=== PATIENT | female | born 1930 | race Caucasian/White ===

== ENCOUNTER 2016-07-24 09:43 | Observation (INO) | payer MEDICARE ==
[2016-07-24] VITALS (7 sets, daily range): BP systolic 125–183; BP diastolic 54–84
[~2016-07-24] VITALS: Ht 160 cm; Wt 65.3 kg
[~2016-07-24 09:43] MED LIST: ARICEPT 5MG TAB5 MG PO; CELEBREX100 MG PO; CELEXA10 MG PO; DONEPEZIL 5MG TA5 MG PO; DONEPEZIL HCL10 MG PO; DULOXETINE30 M1 PO; KLOR-CON M2020 ME1 PO; MEMANTINE HCL10 MG PO; OXAZEPAM 10MG C10 M1 PO; PREDNISONE 20MG20 MG PO; RISPERDAL 0.50.5 MG PO; TRAZODONE HCL50 MG PO
[2016-07-24] MEDS ORDERED: ASPIRIN EC325 MG PO (10:02)
[2016-07-24] MEDS ORDERED: LEADER NATUR1000 MCG PO (10:03)
--- NOTE | 2016-07-24 10:03 | Emergency Room Report ---
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 PT HAS A VISIBLE CONTUSION OVER RIGHT EYE. HOLDING HER RIGHT ARM, GAURDING IT. EMS REPORTS IT LOOKS "DISLOCATED". 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 N Clinical Suspician of Infection? N Mental Status: 2 - Mildly Altered Sepsis Risk:Low Sepsis Risk Have you (or family members/close friends) recently traveled outside the [place]? N If Yes, where/when: Have you had exposure to infectious disease within the past month? N TB? Other? Specify: Source patient, RN notes reviewed Exam Limitations no limitations Comment Pt reports she fell at the CT this morning and hit her head ...she says she did not pass out. Complains of pain in the right forehead where she has a large hematoma over the right eye with abrasions and also in her right shoulder and hurts to try to move it Cardiac Chest Pain Chest pain indicative of cardiac No Timing/Duration this morning Severity moderate ALLERGIES Coded Allergies: No Known Allergies (04/20/15) Home Medications Reported Medications ASPIRIN (Aspirin 325MG) 325 MG PO DAILY Vitamin B12 (Cyanocobalamin Injection) 1,000 MCG PO DAILY DULOXETINE HCL (Cymbalta 30MG) 30 MG PO DAILY DONEPEZIL HCL (Donepezil 10MG Tablet) 10 MG PO QHS Hydroxyzine Hcl (Hydroxyzine) 50 MG PO QHS Potassium Chloride (Klor-Con M20) 20 MEQ PO Q48H MEMANTINE HCL (Namenda 10MG) 10 MG PO BID Olanzapine 5 MG PO QHS Acetaminophen (Tylenol) 650 MG PO Q4HP PRN PAIN/FEVER History Medical History General CAD? No Angina: Yes [place]: No Hypertension? No Hyperlipidemia? No CHF? No DVT? No PE? No COPD? No Asthma? No Anemia? No GERD? Yes Gastric ulcers? No GI Bleed? No Hernia? Yes Thyroid Problems? No Hypothyroidism? No CVA? No Seizures? No Diabetes? No Renal Insuffiency? No End Stage Renal Disease? No UTI? No Stones? No BPH? No GB Disease: No Nephritic Syndrome? No Asplenia? No Hepatitis? No Sickle Cell Disease? No Arthritis? No Migraines? No Cataracts? Yes Glaucoma? No MRSA? No HIV? No TB? No Anxiety? No Depression? Yes Cancer? No Site: N More? 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 Musculoskeletal see HPI Physical Exam Vital Signs Vital Signs Date Time Temp Pulse Resp B/P Pulse O2 O2 Flow FiO2 Ox Delivery Rate 07/24 1235 63 16 137/63 100 2 07/24 1200 81 16 154/65 100 2 07/24 1148 16 07/24 1145 98.1 68 16 172/88 100 2 07/24 1135 67 16 212/84 100 2 07/24 1125 70 16 197/84 100 2 07/24 1117 68 16 206/84 100 2 07/24 1115 70 16 197/84 100 2 07/24 1105 72 16 181/73 99 2 07/24 1055 69 16 179/74 96 2 07/24 1045 72 16 173/82 96 2 07/24 1037 79 16 171/79 97 2 07/24 0946 97.6 76 16 183/84 92 General Appearance normal appearance, WD/WN, mild distress Eye Exam - right eye other (large hematoma above r eye), bilateral eye normal exam Ear, Nose, Throat hearing grossly normal, normal pharynx Respiratory Status No: respiratory distress. Lung Sounds bilateral: normal breath sounds. 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 Yes Escobar was queried for this patient? Yes Reference #: [id number] Risks/benefits of using a controlled substance for treatment were not discussed w/pt Results/Orders Laboratory Tests 07/24/16 1250: Lactic Acid Pending 07/24/16 1115: Urine Color YELLOW, Urine Appearance CLOUDY, Urine pH 7.0, Ur Specific [place] 1.015, Urine Protein NEGATIVE, Urine Ketones NEGATIVE, Urine Blood TRACE-INTACT, Urine Nitrate POSITIVE H, Urine Bilirubin NEGATIVE, Urine Urobilinogen 1.0, Ur Leukocyte Esterase TRACE H, Urine RBC OCC, Urine WBC OCC, Ur Squamous Epith Cells 3-5, Urine Bacteria 4+, Urine Glucose NEGATIVE 07/24/16 1000: Sodium 141, Potassium 3.5, Chloride 108 H, Carbon Dioxide 26, BUN 16, Creatinine 1.0, Estimated Creat Clear 34 L, Estimated GFR (MDRD) 52 L, Glucose 111 H, Calcium 8.5, Total Bilirubin 0.4, AST 15, ALT 20, Alkaline Phosphatase 76, Total Protein 7.0, Albumin 3.2 L, Globulin 3.8 H, Albumin/Globulin Ratio 0.8 L, WBC 9.0, RBC 4.21, Hgb 12.5, Hct 38.4, MCV 91.2, RDW 14.6, Plt Count 313 , MPV 6.1 L, Gran % 43.2, Gran # 3.9, Lymphocytes % 46.7, Monocytes % 6.3, Eosinophils % 3.1, Basophils % 0.7, Lymphocytes # 4.2, Monocytes # 0.6, Eosinophils # 0.3, Basophils # 0.1, PUBS MCHC 32.6, MCH 29.7 Current Medication Orders Sig/Rhiannon Start time Last Medication Dose Route Stop Time Status Admin Ceftriaxone Sodium 1 GM ONCE ONE 07/24 1200 DC 07/24 Sodium Chloride 50 ML IV 07/24 1229 1254 Hydralazine HCl 20 MG ONCE ONE 07/24 1145 DC 07/24 IV 07/24 1146 1147 Morphine Sulfate 4 MG ONCE ONE 07/24 1145 DC 07/24 IV 07/24 1146 1148 Ondansetron HCl 4 MG ONCE ONE 07/24 1145 DC 07/24 IV 07/24 1146 1148 Morphine Sulfate 0 .STK-MED ONE 07/24 1140 DC .ROUTE Ondansetron HCl 0 .STK-MED ONE 07/24 1140 DC .ROUTE Hydralazine HCl 0 .STK-MED ONE 07/24 1139 DC .ROUTE Etomidate 16 MG ONCE ONE 07/24 1100 DC 07/24 IV 07/24 1101 1114 Miscellaneous 0 .STK-MED ONE 07/24 1057 DC XX Sodium Chloride 1,000 ML .STK-MED ONE 07/24 1056 DC IV Diphtheria/Pertussis/ 0.5 ML ONCE ONE 07/24 1015 DC Tetanus Vacc IM 07/24 1016 Sodium Chloride 10 ML PRN PRN 07/24 1015 AC IV 07/25 1009 Orders Procedure Date/time Status DIET-NOTHING BY MOUTH 07/24 L Active Decision to admit 07/24 1241 Active ANKLE-RT-2 VIEWS 07/24 1213 Active CULTURE, BLOOD 07/24 1143 Active LACTIC ACID 07/24 1143 Active CBC WITH AUTO DIFF 07/24 1143 Complete CHEM 12 PROFILE 07/24 1143 Complete URINALYSIS/COMPLETE 07/24 1120 Complete [id number] VIEW COMP.-RT 07/24 1115 Active KNEE-3 VIEWS-LT 07/24 1115 Active CHEST-AP VIEW ONLY 07/24 1115 Active CULTURE, URINE 07/24 1115 Active IV SALINE LOCK 07/[address] HEAD REQ 07/[address] SCAN REQ 07/24 1004 Complete XRAY/CT/US XRAY/CT/US XRAY chest, knee, shoulder XR interpretation by reviewed by me Xray Results anterior dislocation right shoulder CT head, C-spine CT interpretation by discussed w/radiologist Time results known: 1156 CT Results normal/NAD, no fracture seen Comment Large hematoma right forehead Procedures Orthopedic/Inj/Splint IV Sedation Airway Assessment IV Sedation used? Yes (Etomidate 16 mg ) Neck Extension: Limited Dentition: Intact Modified Mallampati Class: MP Class I ASA prior to sedation per Dr: 1 Comment: Conscious Sedation obtained without difficulty Ortho Proc/Injections/Splints Risks/benefits discussed with pt/guardian? Yes IV conscious sedation Yes Procedural sedation Etomidate 16mg given IVP Arthrocentesis of (site) Not applicable Reduction of dislocate shoulder Injection of anesthetic in joint (site) not needed Reduction of dislocation Location shoulder Reductioni Method Traction/Counter traction. Comment Reduced without difficulty...send for post reduction films Post reduction xrays completed and anatomic Yes Pre-Made Type sling/swathe Pre-Proc Neuro Vasc Exam normal Post-Proc Neuro Vasc Exam normal Departure Departure Time of Disposition 1309 Disposition Still a Patient Clinical Impression Primary Impression: Closed head injury Qualifiers: Encounter type: initial encounter Qualified Code: S09.90XA - Unspecified injury of head, initial encounter Secondary Impressions: Closed anterior dislocation of right shoulder Qualifiers: Encounter type: initial encounter Qualified Code: S43.014A - Anterior dislocation of right humerus, initial encounter Cystitis without hematuria Condition STABLE Referrals Finn Jones (Family) Additional Instructions Discussed with Dr. Galdamez...OBS to Dr. Marie Discharge Counseling Counseled pt/family regarding diagnosis, test results, follow up needs ED Critical Care Critical Care No If Critical Care minutes are documented, the time involved in the performance of seperately reportable procedures was not counted toward critical care time documented. I directly delivered medical care to this critically ill and/or injured patient. Timely evaluation and treatment was necessary to address the significant organ system(s) dysfunction present in this patient. at 1312
--- NOTE | 2016-07-24 10:03 | Emergency Room Report ---
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 PT HAS A VISIBLE CONTUSION OVER RIGHT EYE. HOLDING HER RIGHT ARM, GAURDING IT. EMS REPORTS IT LOOKS "DISLOCATED". 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 N Clinical Suspician of Infection? N Mental Status: 2 - Mildly Altered Sepsis Risk:Low Sepsis Risk Have you (or family members/close friends) recently traveled outside the [place]? N If Yes, where/when: Have you had exposure to infectious disease within the past month? N TB? Other? Specify: Source patient, RN notes reviewed Exam Limitations no limitations Comment Pt reports [facility] this [facility] and hit her head ...she says she did not pass out. Complains of pain in the right forehead where she has a large hematoma over the right eye with abrasions and also in her right shoulder and hurts to try to move it Cardiac Chest Pain Chest pain indicative of cardiac No Timing/Duration this morning Severity moderate ALLERGIES Coded Allergies: No Known Allergies (04/20/15) Home Medications Reported Medications ASPIRIN (Aspirin 325MG) 325 MG PO DAILY Vitamin B12 (Cyanocobalamin Injection) 1,000 MCG PO DAILY DULOXETINE HCL (Cymbalta 30MG) 30 MG PO DAILY DONEPEZIL HCL (Donepezil 10MG Tablet) 10 MG PO QHS Hydroxyzine Hcl (Hydroxyzine) 50 MG PO QHS Potassium Chloride (Klor-Con M20) 20 MEQ PO Q48H MEMANTINE HCL (Namenda 10MG) 10 MG PO BID Olanzapine 5 MG PO QHS Acetaminophen (Tylenol) 650 MG PO Q4HP PRN PAIN/FEVER History Medical History General CAD? No Angina: Yes [place]: No Hypertension? No Hyperlipidemia? No CHF? No DVT? No PE? No COPD? No Asthma? No Anemia? No GERD? Yes Gastric ulcers? No GI Bleed? No Hernia? Yes Thyroid Problems? No Hypothyroidism? No CVA? No Seizures? No Diabetes? No Renal Insuffiency? No End Stage Renal Disease? No UTI? No Stones? No BPH? No GB Disease: No Nephritic Syndrome? No Asplenia? No Hepatitis? No Sickle Cell Disease? No Arthritis? No Migraines? No Cataracts? Yes Glaucoma? No MRSA? No HIV? No TB? No Anxiety? No Depression? Yes Cancer? No Site: N More? 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 Musculoskeletal see HPI Physical Exam Vital Signs Vital Signs Date Time Temp Pulse Resp B/P Pulse O2 O2 Flow FiO2 Ox Delivery Rate 07/24 1235 63 16 137/63 100 2 07/24 1200 81 16 154/65 100 2 07/24 1148 16 07/24 1145 98.1 68 16 172/88 100 2 07/24 1135 67 16 212/84 100 2 07/24 1125 70 16 197/84 100 2 07/24 1117 68 16 206/84 100 2 07/24 1115 70 16 197/84 100 2 07/24 1105 72 16 181/73 99 2 07/24 1055 69 16 179/74 96 2 07/24 1045 72 16 173/82 96 2 07/24 1037 79 16 171/79 97 2 07/24 0946 97.6 76 16 183/84 92 General Appearance normal appearance, WD/WN, mild distress Eye Exam - right eye other (large hematoma above r eye), bilateral eye normal exam Ear, Nose, Throat hearing grossly normal, normal pharynx Respiratory Status No: respiratory distress. Lung Sounds bilateral: normal breath sounds. 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 Yes Escobar was queried for this patient? Yes Reference #: [id number] Risks/benefits of using a controlled substance for treatment were not discussed w/pt Results/Orders Laboratory Tests 07/24/16 1250: Lactic Acid Pending 07/24/16 1115: Urine Color YELLOW, Urine Appearance CLOUDY, Urine pH 7.0, Ur Specific [place] 1.015, Urine Protein NEGATIVE, Urine Ketones NEGATIVE, Urine Blood TRACE-INTACT, Urine Nitrate POSITIVE H, Urine Bilirubin NEGATIVE, Urine Urobilinogen 1.0, Ur Leukocyte Esterase TRACE H, Urine RBC OCC, Urine WBC OCC, Ur Squamous Epith Cells 3-5, Urine Bacteria 4+, Urine Glucose NEGATIVE 07/24/16 1000: Sodium 141, Potassium 3.5, Chloride 108 H, Carbon Dioxide 26, BUN 16, Creatinine 1.0, Estimated Creat Clear 34 L, Estimated GFR (MDRD) 52 L, Glucose 111 H, Calcium 8.5, Total Bilirubin 0.4, AST 15, ALT 20, Alkaline Phosphatase 76, Total Protein 7.0, Albumin 3.2 L, Globulin 3.8 H, Albumin/Globulin Ratio 0.8 L, WBC 9.0, RBC 4.21, Hgb 12.5, Hct 38.4, MCV 91.2, RDW 14.6, Plt Count 313 , MPV 6.1 L, Gran % 43.2, Gran # 3.9, Lymphocytes % 46.7, Monocytes % 6.3, Eosinophils % 3.1, Basophils % 0.7, Lymphocytes # 4.2, Monocytes # 0.6, Eosinophils # 0.3, Basophils # 0.1, PUBS MCHC 32.6, MCH 29.7 Current Medication Orders Sig/Rhiannon Start time Last Medication Dose Route Stop Time Status Admin Ceftriaxone Sodium 1 GM ONCE ONE 07/24 1200 DC 07/24 Sodium Chloride 50 ML IV 07/24 1229 1254 Hydralazine HCl 20 MG ONCE ONE 07/24 1145 DC 07/24 IV 07/24 1146 1147 Morphine Sulfate 4 MG ONCE ONE 07/24 1145 DC 07/24 IV 07/24 1146 1148 Ondansetron HCl 4 MG ONCE ONE 07/24 1145 DC 07/24 IV 07/24 1146 1148 Morphine Sulfate 0 .STK-MED ONE 07/24 1140 DC .ROUTE Ondansetron HCl 0 .STK-MED ONE 07/24 1140 DC .ROUTE Hydralazine HCl 0 .STK-MED ONE 07/24 1139 DC .ROUTE Etomidate 16 MG ONCE ONE 07/24 1100 DC 07/24 IV 07/24 1101 1114 Miscellaneous 0 .STK-MED ONE 07/24 1057 DC XX Sodium Chloride 1,000 ML .STK-MED ONE 07/24 1056 DC IV Diphtheria/Pertussis/ 0.5 ML ONCE ONE 07/24 1015 DC Tetanus Vacc IM 07/24 1016 Sodium Chloride 10 ML PRN PRN 07/24 1015 AC IV 07/25 1009 Orders Procedure Date/time Status DIET-NOTHING BY MOUTH 07/24 L Active Decision to admit 07/24 1241 Active ANKLE-RT-2 VIEWS 07/24 1213 Active CULTURE, BLOOD 07/24 1143 Active LACTIC ACID 07/24 1143 Active CBC WITH AUTO DIFF 07/24 1143 Complete CHEM 12 PROFILE 07/24 1143 Complete URINALYSIS/COMPLETE 07/24 1120 Complete [id number] VIEW COMP.-RT 07/24 1115 Active KNEE-3 VIEWS-LT 07/24 1115 Active CHEST-AP VIEW ONLY 07/24 1115 Active CULTURE, URINE 07/24 1115 Active IV SALINE LOCK 07/[address] HEAD REQ 07/[address] SCAN REQ 07/24 1004 Complete XRAY/CT/US XRAY/CT/US XRAY chest, knee, shoulder XR interpretation by reviewed by me Xray Results anterior dislocation right shoulder CT head, C-spine CT interpretation by discussed w/radiologist Time results known: 1156 CT Results normal/NAD, no fracture seen Comment Large hematoma right forehead Procedures Orthopedic/Inj/Splint IV Sedation Airway Assessment IV Sedation used? Yes (Etomidate 16 mg ) Neck Extension: Limited Dentition: Intact Modified Mallampati Class: MP Class I ASA prior to sedation per Dr: 1 Comment: Conscious Sedation obtained without difficulty Ortho Proc/Injections/Splints Risks/benefits discussed with pt/guardian? Yes IV conscious sedation Yes Procedural sedation Etomidate 16mg given IVP Arthrocentesis of (site) Not applicable Reduction of dislocate shoulder Injection of anesthetic in joint (site) not needed Reduction of dislocation Location shoulder Reductioni Method Traction/Counter traction. Comment Reduced without difficulty...send for post reduction films Post reduction xrays completed and anatomic Yes Pre-Made Type sling/swathe Pre-Proc Neuro Vasc Exam normal Post-Proc Neuro Vasc Exam normal Departure Departure Time of Disposition 1309 Disposition Still a Patient Clinical Impression Primary Impression: Closed head injury Qualifiers: Encounter type: initial encounter Qualified Code: S09.90XA - Unspecified injury of head, initial encounter Secondary Impressions: Closed anterior dislocation of right shoulder Qualifiers: Encounter type: initial encounter Qualified Code: S43.014A - Anterior dislocation of right humerus, initial encounter Cystitis without hematuria Condition STABLE Referrals Finn Jones (Family) Additional Instructions Discussed with Dr. Galdamez...OBS to Dr. Marie Discharge Counseling Counseled pt/family regarding diagnosis, test results, follow up needs ED Critical Care Critical Care No If Critical Care minutes are documented, the time involved in the performance of seperately reportable procedures was not counted toward critical care time documented. I directly delivered medical care to this critically ill and/or injured patient. Timely evaluation and treatment was necessary to address the significant organ system(s) dysfunction present in this patient. at 1312
[2016-07-24] MEDS ORDERED: CYMBALTA30 MG PO (10:04)
[2016-07-24] MEDS ORDERED: HYDROXYZINE50 MG PO (10:04)
[2016-07-24] MEDS ORDERED: DONEPEZIL 10MG10 MG PO (10:04)
[2016-07-24] MEDS ORDERED: KLOR-CON M2020 MEQ PO (10:05)
[2016-07-24] MEDS ORDERED: OLANZAPINE5 M1 PO (10:06)
[2016-07-24] MEDS ORDERED: NAMENDA10 MG PO (10:06)
[2016-07-24] MEDS ORDERED: TYLENOL325 MG PO (10:07)
--- NOTE | 2016-07-24 11:16 | RADIOLOGY REPORT PS360 ---
CT CERVICAL SPINE W/O CONT INDICATION: Neck pain following injury FALL WITH HEAD INJURY ORDERING PHYSICIAN: Divya Martinez MD PATIENT AGE: 86 years COMPARISON: None TECHNIQUE: Axial images are obtained without contrast. Sagittal and coronal reformatted images are reviewed as well. FINDINGS: Normal alignment. No fracture or dislocation. No lytic or blastic change. Mild degenerative disc disease is present at C4-C5. No prevertebral soft tissue swelling. Upper thoracic images show dilatation and ectasia of the right and [place] artery causing compression upon the anterior aspect of the trachea with mild narrowing of the trachea at the thoracic inlet.. There is a common origin of the right and on the mid and left carotid artery. This is the area of dilatation which measures 2.5 x 2.3 cm. Gas is present within the left jugular vein at the level of the mandibular angle and could be due to recent intravenous ministration. IMPRESSION: 1. No acute fracture. 2. Mild degenerative change. 3. 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
--- NOTE | 2016-07-24 11:20 | RADIOLOGY REPORT PS360 ---
CT HEAD W/O CONTRAST HISTORY: Head pain, hematoma, head injury with headache, massive hematoma above the right eye FALL WITH HEAD INJURY ORDERING PHYSICIAN: Divya Martinez MD PATIENT AGE: 86 years COMPARISON: None TECHNIQUE: Axial images obtained without contrast. Brain and bone windows reviewed. FINDINGS: No midline shift, mass effect, intracranial hemorrhage, hydrocephalus, or extra-axial fluid collection is evident. There are involutional changes of age with periventricular ischemic gliotic changes. There is a large hematoma in the right frontal area and supraorbital region. No intracranial hemorrhage evident. No evidence of subdural or epidural hematoma. No calvarial fracture or sinus air-fluid level. The calvarium has an unremarkable appearance. No mastoid effusion. The visualized paranasal sinuses are unremarkable. IMPRESSION: 1. No acute intracranial pathology. 2. Large right supraorbital hematoma.
--- NOTE | 2016-07-24 11:21 | RADIOLOGY REPORT PS360 ---
[id number] VIEWS HISTORY: Pain following injury injury ORDERING PHYSICIAN: Divya Martinez MD PATIENT AGE: 86 years COMPARISON: None FINDINGS: Anterior shoulder dislocation is present. No obvious fracture is evident. Mild osteoarthritic change acromioclavicular joint. IMPRESSION: Right anterior shoulder dislocation
[2016-07-24 11:33] LABS: URINE BILIRUBIN - DIPSTICK NEGATIVE (NEG); URINE BLOOD TRACE-INTACT (NEG)
[2016-07-24 12:02] LABS: HEMOGLOBIN 12.5 g/dL (12.2-16.2); LYMPH # 4.2 K/mm3 (0.7-4.5); LYMPH % 46.7 % (10-50.0)
--- NOTE | 2016-07-24 16:03 | HISTORY AND PHYSICAL REPORT ---
History and Physical (FCA) Date of admission: 07/24/16 Chief complaint: Fall at assisted History: History of Present Illness: Ms. Byrd is an 86-year-old white female with Alzheimer's dementia and coronary artery disease who is a resident of [facility] [place]. He suffered a fall at the assisted this morning. It is not clear if she had a syncopal episode or simply fell although she told the ER physician she did not pass out. On evaluation in the emergency room, she was noted to have a large contusion of the right forehead and eye as well as an anterior dislocation of the left shoulder. CT scan of the head showed no intracranial bleed. X-rays of the C- spine and shoulder showed no fracture. Laboratory data was satisfactory except for an abnormal urinalysis. Under sedation, the ER physician was able to reduce left shoulder dislocation. Because of her closed head trauma and urinary tract infection, it was felt prudent to admit her for observation. On my exam she is awake and appears fairly comfortable. She answers questions appropriately. Past Medical History: Medical History: CAD? No Angina: Yes DC: No Hypertension? No Hyperlipidemia? No CHF? No DVT? No PE? No COPD? No Asthma? No Anemia? No GERD? Yes Gastric ulcers? No GI Bleed? No Hernia? Yes Thyroid Problems? No Hypothyroidism? No CVA? No Seizures? No Diabetes? No Renal Insuffiency? No UTI? No Stones? No BPH? No GB Disease: No Nephritic Syndrome? No Asplenia? No Hepatitis? No Sickle Cell Disease? No Arthritis? No Migraines? No Cataracts? Yes Glaucoma? No MRSA? No HIV? No TB? No Anxiety? No Depression? Yes Cancer? No Site: N More? No Additional hx: Diverticulosis Alzheimers Dementia Surgical history: Previous Surgery?Y PARAESOPHAGEL SURGERY ESOPHAGEAL HERNIA REPAIR PARTIAL HYSTERECTOMY Appendix CATARACT BILAT Medications: Reported Medications ASPIRIN (Aspirin EC) 325 MG PO DAILY CYANOCOBALAMIN (VITAMIN B-12) (Vitamin B-12) 1,000 MCG PO DAILY Hydroxyzine Hcl (Hydroxyzine) 50 MG PO QHS DULOXETINE HCL (Cymbalta 30MG) 30 MG PO DAILY DONEPEZIL HCL (Donepezil 10MG Tablet) 10 MG PO QHS Potassium Chloride (Klor-Con M20) 20 MEQ PO Q48H MEMANTINE HCL (Namenda 10MG) 10 MG PO BID Olanzapine 5 MG PO QHS Acetaminophen (Tylenol) 650 MG PO Q4HP PRN PAIN/FEVER Allergies: Coded Allergies: No Known Allergies (04/20/15) Family History: Family history: Postive for: CAD. Negative for: DM. Social History: Smoking Hx Tobacco: No Smoker: Never Smoker Type: N/A Packs/day: N/A Are you exposed to second hand No Alcohol: Alcohol: No Hx of Drug Use: Drug Use? No Patien't marital status is: Review of Systems: Patient unresponsive? No (but a poor historian) ENT No: ear ache, nose bleed, hearing loss. Cardiovascular No: chest pain, palpitations. Respiratory No: shortness of air. GI No: abdominal pain. (female) No: flank pain. Skin Positive for: abrasions, bruising, contusions. Neurological Positive for: confusion. Immune/allergy No: hives. Eyes Positive for: blurry vision. No: diploplia, vision loss. Musculoskeletal Positive for: joint pain. Psychiatric Positive for: confused. Physical Exam: Vital signs: 1ST Vital Signs Result Date Time Pulse Ox 92 07/24 0946 B/P 183/84 07/24 0946 Temp 97.6 07/24 0946 Pulse 76 07/24 0946 Resp 16 07/24 0946 O2 Flow Rate 2 07/24 1037 O2 Delivery OXYGEN 07/24 1253 Exam: General appearance: awake, no acute distress, calm demeanor Eyes: large hematoma of right forehead and around. She is able to partially open right. Globe appears intact ENT: mucous membranes moist, nose normal, pharynx normal Neck: supple, slight tenderness of right posterior neck Cardiovascular: regular rate & rhythm, no murmur Respiratory: clear to auscultation, chest non-tender, good air movement ABD: non-distended, soft, no tenderness Extremities: no peripheral edema, warm Musculoskeletal: left arm in sling Skin: dry, normal color, warm, several small abrsions on right forehead Neuro: alert, speech clear, oriented to name only Lab data: Labs: Laboratory Tests 07/24/16 1250: Lactic Acid 1.8 07/24/16 1115: Urine Color YELLOW, Urine Appearance CLOUDY, Urine pH 7.0, Ur Specific [place] 1.015, Urine Protein NEGATIVE, Urine Ketones NEGATIVE, Urine Blood TRACE-INTACT, Urine Nitrate POSITIVE H, Urine Bilirubin NEGATIVE, Urine Urobilinogen 1.0, Ur Leukocyte Esterase TRACE H, Urine RBC OCC, Urine WBC OCC, Ur Squamous Epith Cells 3-5, Urine Bacteria 4+, Urine Glucose NEGATIVE 07/24/16 1000: Sodium 141, Potassium 3.5, Chloride 108 H, Carbon Dioxide 26, BUN 16, Creatinine 1.0, Estimated Creat Clear 34 L, Estimated GFR (MDRD) 52 L, Glucose 111 H, Calcium 8.5, Total Bilirubin 0.4, AST 15, ALT 20, Alkaline Phosphatase 76, Total Protein 7.0, Albumin 3.2 L, Globulin 3.8 H, Albumin/Globulin Ratio 0.8 L, WBC 9.0, RBC 4.21, Hgb 12.5, Hct 38.4, MCV 91.2, RDW 14.6, Plt Count 313 , MPV 6.1 L, Gran % 43.2, Gran # 3.9, Lymphocytes % 46.7, Monocytes % 6.3, Eosinophils % 3.1, Basophils % 0.7, Lymphocytes # 4.2, Monocytes # 0.6, Eosinophils # 0.3, Basophils # 0.1, PUBS MCHC 32.6, MCH 29.7 Microbiology 07/24 1250 BLOOD: Anaerobic Blood Culture - RECD 07/24 1250 BLOOD: Aerobic Blood Culture - RECD 07/24 1250 BLOOD: Anaerobic Blood Culture - RECD 07/24 1250 BLOOD: Aerobic Blood Culture - RECD 07/24 1115 URINE CC: Urine Culture - RECD Diagnosis(es): 1. Closed head injury 2. Cystitis without hematuria 3. Closed anterior dislocation of right shoulder 4. Alzheimer's dementia Status: Chronic 5. Fall 6. History of ASCVD (arteriosclerotic cardiovascular disease) 7. GERD (gastroesophageal reflux disease) Plan: She is admitted for observation after her fall with closed head injury. She has an apparent urinary tract infection and has been started on IV Rocephin pending results of cultures. Her left shoulder dislocation was reduced in the emergency room and her arm is in a sling. She will be placed on a auto transmission technician to rule out dysrhythmias. She will be continued on her maintenance medications from the assisted. Additional workup and treatment will be as indicated by her hospital course. at 0000
--- NOTE | 2016-07-24 16:03 | HISTORY AND PHYSICAL REPORT ---
History and Physical (FCA) Date of admission: 07/24/16 Chief complaint: Fall at group home History: History of Present Illness: Ms. Byrd is an 86-year-old white female with Alzheimer's dementia and coronary artery disease who is a resident of [facility] [place]. He suffered a fall at the group home this morning. It is not clear if she had a syncopal episode or simply fell although she told the ER physician she did not pass out. On evaluation in the emergency room, she was noted to have a large contusion of the right forehead and eye as well as an anterior dislocation of the left shoulder. CT scan of the head showed no intracranial bleed. X-rays of the C- spine and shoulder showed no fracture. Laboratory data was satisfactory except for an abnormal urinalysis. Under sedation, the ER physician was able to reduce left shoulder dislocation. Because of her closed head trauma and urinary tract infection, it was felt prudent to admit her for observation. On my exam she is awake and appears fairly comfortable. She answers questions appropriately. Past Medical History: Medical History: CAD? No Angina: Yes MT: No Hypertension? No Hyperlipidemia? No CHF? No DVT? No PE? No COPD? No Asthma? No Anemia? No GERD? Yes Gastric ulcers? No GI Bleed? No Hernia? Yes Thyroid Problems? No Hypothyroidism? No CVA? No Seizures? No Diabetes? No Renal Insuffiency? No UTI? No Stones? No BPH? No GB Disease: No Nephritic Syndrome? No Asplenia? No Hepatitis? No Sickle Cell Disease? No Arthritis? No Migraines? No Cataracts? Yes Glaucoma? No MRSA? No HIV? No TB? No Anxiety? No Depression? Yes Cancer? No Site: N More? No Additional hx: Diverticulosis Alzheimers Dementia Surgical history: Previous Surgery?Y PARAESOPHAGEL SURGERY ESOPHAGEAL HERNIA REPAIR PARTIAL HYSTERECTOMY Appendix CATARACT BILAT Medications: Reported Medications ASPIRIN (Aspirin EC) 325 MG PO DAILY CYANOCOBALAMIN (VITAMIN B-12) (Vitamin B-12) 1,000 MCG PO DAILY Hydroxyzine Hcl (Hydroxyzine) 50 MG PO QHS DULOXETINE HCL (Cymbalta 30MG) 30 MG PO DAILY DONEPEZIL HCL (Donepezil 10MG Tablet) 10 MG PO QHS Potassium Chloride (Klor-Con M20) 20 MEQ PO Q48H MEMANTINE HCL (Namenda 10MG) 10 MG PO BID Olanzapine 5 MG PO QHS Acetaminophen (Tylenol) 650 MG PO Q4HP PRN PAIN/FEVER Allergies: Coded Allergies: No Known Allergies (04/20/15) Family History: Family history: Postive for: CAD. Negative for: DM. Social History: Smoking Hx Tobacco: No Smoker: Never Smoker Type: N/A Packs/day: N/A Are you exposed to second hand No Alcohol: Alcohol: No Hx of Drug Use: Drug Use? No Patien't marital status is: Review of Systems: Patient unresponsive? No (but a poor historian) ENT No: ear ache, nose bleed, hearing loss. Cardiovascular No: chest pain, palpitations. Respiratory No: shortness of air. GI No: abdominal pain. (female) No: flank pain. Skin Positive for: abrasions, bruising, contusions. Neurological Positive for: confusion. Immune/allergy No: hives. Eyes Positive for: blurry vision. No: diploplia, vision loss. Musculoskeletal Positive for: joint pain. Psychiatric Positive for: confused. Physical Exam: Vital signs: 1ST Vital Signs Result Date Time Pulse Ox 92 07/24 0946 B/P 183/84 07/24 0946 Temp 97.6 07/24 0946 Pulse 76 07/24 0946 Resp 16 07/24 0946 O2 Flow Rate 2 07/24 1037 O2 Delivery OXYGEN 07/24 1253 Exam: General appearance: awake, no acute distress, calm demeanor Eyes: large hematoma of right forehead and around. She is able to partially open right. Globe appears intact ENT: mucous membranes moist, nose normal, pharynx normal Neck: supple, slight tenderness of right posterior neck Cardiovascular: regular rate & rhythm, no murmur Respiratory: clear to auscultation, chest non-tender, good air movement ABD: non-distended, soft, no tenderness Extremities: no peripheral edema, warm Musculoskeletal: left arm in sling Skin: dry, normal color, warm, several small abrsions on right forehead Neuro: alert, speech clear, oriented to name only Lab data: Labs: Laboratory Tests 07/24/16 1250: Lactic Acid 1.8 07/24/16 1115: Urine Color YELLOW, Urine Appearance CLOUDY, Urine pH 7.0, Ur Specific [place] 1.015, Urine Protein NEGATIVE, Urine Ketones NEGATIVE, Urine Blood TRACE-INTACT, Urine Nitrate POSITIVE H, Urine Bilirubin NEGATIVE, Urine Urobilinogen 1.0, Ur Leukocyte Esterase TRACE H, Urine RBC OCC, Urine WBC OCC, Ur Squamous Epith Cells 3-5, Urine Bacteria 4+, Urine Glucose NEGATIVE 07/24/16 1000: Sodium 141, Potassium 3.5, Chloride 108 H, Carbon Dioxide 26, BUN 16, Creatinine 1.0, Estimated Creat Clear 34 L, Estimated GFR (MDRD) 52 L, Glucose 111 H, Calcium 8.5, Total Bilirubin 0.4, AST 15, ALT 20, Alkaline Phosphatase 76, Total Protein 7.0, Albumin 3.2 L, Globulin 3.8 H, Albumin/Globulin Ratio 0.8 L, WBC 9.0, RBC 4.21, Hgb 12.5, Hct 38.4, MCV 91.2, RDW 14.6, Plt Count 313 , MPV 6.1 L, Gran % 43.2, Gran # 3.9, Lymphocytes % 46.7, Monocytes % 6.3, Eosinophils % 3.1, Basophils % 0.7, Lymphocytes # 4.2, Monocytes # 0.6, Eosinophils # 0.3, Basophils # 0.1, PUBS MCHC 32.6, MCH 29.7 Microbiology 07/24 1250 BLOOD: Anaerobic Blood Culture - RECD 07/24 1250 BLOOD: Aerobic Blood Culture - RECD 07/24 1250 BLOOD: Anaerobic Blood Culture - RECD 07/24 1250 BLOOD: Aerobic Blood Culture - RECD 07/24 1115 URINE CC: Urine Culture - RECD Diagnosis(es): 1. Closed head injury 2. Cystitis without hematuria 3. Closed anterior dislocation of right shoulder 4. Alzheimer's dementia Status: Chronic 5. Fall 6. History of ASCVD (arteriosclerotic cardiovascular disease) 7. GERD (gastroesophageal reflux disease) Plan: She is admitted for observation after her fall with closed head injury. She has an apparent urinary tract infection and has been started on IV Rocephin pending results of cultures. Her left shoulder dislocation was reduced in the emergency room and her arm is in a sling. She will be placed on a case monitor to rule out dysrhythmias. She will be continued on her maintenance medications from the group home. Additional workup and treatment will be as indicated by her hospital course. at 6038
[2016-07-24 20:04] LABS: URINE BILIRUBIN - DIPSTICK NEGATIVE (NEG); URINE BLOOD NEGATIVE (NEG)
[2016-07-25] VITALS (7 sets, daily range): BP systolic 110–144; BP diastolic 48–82
[2016-07-25 06:39] LABS: HEMOGLOBIN 12.2 g/dL (12.2-16.2); LYMPH # 1.6 K/mm3 (0.7-4.5); LYMPH % 23.8 % (10-50.0)
--- NOTE | 2016-07-25 09:16 | RADIOLOGY REPORT PS360 ---
CHEST-AP VIEW ONLY HISTORY: Chest pain following injury injury ORDERING PHYSICIAN: Divya Martinez MD PATIENT AGE: 86 years COMPARISON: 06/03/2016 FINDINGS: Normal heart size. No lobar consolidation or collapse. No acute bony anomalies IMPRESSION: No change with no acute finding
--- NOTE | 2016-07-25 09:18 | RADIOLOGY REPORT PS360 ---
[id number]-0 VIEW COMP.-RT HISTORY: Follow-up dislocation, postreduction injury ORDERING PHYSICIAN: Divya Martinez MD PATIENT AGE: 86 years COMPARISON: Same day FINDINGS: Interval relocation of the humeral head. No obvious fracture. Mild adjacent change AC joint. IMPRESSION: Relocation of the humeral head
--- NOTE | 2016-07-25 09:19 | RADIOLOGY REPORT PS360 ---
KNEE-3 VIEWS-LT HISTORY: Left knee pain following injury/laceration injury ORDERING PHYSICIAN: Divya Martinez MD PATIENT AGE: 86 years COMPARISON: None FINDINGS: No fracture or dislocation. No lytic or blastic change. Normal mineralization. No significant arthritic changes evident. Soft tissue defect is noted superficial to the patella with a bandage artifact at this area IMPRESSION: Soft tissue laceration at the patellar region, no acute bony anomalies
--- NOTE | 2016-07-25 09:20 | RADIOLOGY REPORT PS360 ---
ANKLE-RT-2 VIEWS HISTORY: Posttraumatic pain ankle pain ORDERING PHYSICIAN: Divya Martinez MD PATIENT AGE: 86 years COMPARISON: None FINDINGS: No obvious fracture or dislocation. Vascular calcification is noted. IMPRESSION: No acute finding
--- NOTE | 2016-07-25 09:30 | PHARMACY CLINIC NOTE ---
Patient Demographics Patient Demographics Admission date: 07/24/16 Date: 07/25/16 Time: 0930 Allergies Coded Allergies: No Known Allergies (04/20/15) HEIGHT- FT: 5 IN: 3.00 K.318 VTE General Information Labs: Laboratory Tests 07/25 07/24 0620 1000 Hematology Hgb (12.2 - 16.2 g/dL) 12.2 12.5 Hct (37.0 - 47.0 %) 36.4 L 38.4 Plt Count (142 - 424 K/mm3) 246 313 Disclaimer The following section includes nursing documentation that has been pulled in for pharmacy review. Patient's VTE score: 2 Patient's VTE Risk: VERY LOW RISK Clinical trial participant? No VTE prophylaxis [id number] VTE prophylaxis ordered? Yes Type of prophylaxis/treatment: ICD at 0930
--- NOTE | 2016-07-25 09:32 | ACUTE CARE PROGRESS NOTE (QUA) ---
See Addendum Progress Notes Subjective Date 07/25/16 Time 0925 Note The history is reviewed. Alzheimer's disease with a fall yesterday. She is at her baseline level of confusion. She does not seem to recognize me. She is unable to name this facility or even the month of the year. She seems to be comfortable. She has a large hematoma of the forehead on the RIGHT and surrounding ecchymoses including some ecchymoses to the LEFT. She seems to have no neurologic deficit apart from her Alzheimer's. I carefully checked her extraocular muscle movement. I think it is normal. On CT the sinuses seem intact. I see no postreduction x-ray for the shoulder. Objective Findings Laboratory Tests 07/25/16 0620: Sodium 140, Potassium 3.6, Chloride 108 H, Carbon Dioxide 25, BUN 14, Creatinine 0.9, Estimated Creat Clear 45 L, Estimated GFR (MDRD) 59, Glucose 104, Calcium 8.3 L, WBC 6.8, RBC 4.01 L, Hgb 12.2, Hct 36.4 L, MCV 90.7, RDW 14.7, Plt Count 246, MPV 5.9 L, Gran % 66.4, Gran # 4.5, Lymphocytes % 23.8, Monocytes % 8.7, Eosinophils % 0.4, Basophils % 0.6, Lymphocytes # 1.6, Monocytes # 0.6, Eosinophils # 0.0, Basophils # 0.0, PUBS MCHC 33.4, MCH 30.3 07/24/16 1705: Urine Color YELLOW, Urine Appearance CLOUDY, Urine pH 7.0, Ur Specific [place] 1.015, Urine Protein NEGATIVE, Urine Ketones NEGATIVE, Urine Blood NEGATIVE, Urine Nitrate POSITIVE H, Urine Bilirubin NEGATIVE, Urine Urobilinogen 1.0, Ur Leukocyte Esterase TRACE H, Urine WBC 5-10, Ur Squamous Epith Cells 5-10, Urine Renal Cells 3-5, Amorphous Sediment 2+, Urine Bacteria 3+, Urine Mucus 1+, Urine Glucose NEGATIVE 07/24/16 1250: Lactic Acid 1.8 07/24/16 1115: Urine Color YELLOW, Urine Appearance CLOUDY, Urine pH 7.0, Ur Specific [place] 1.015, Urine Protein NEGATIVE, Urine Ketones NEGATIVE, Urine Blood TRACE-INTACT, Urine Nitrate POSITIVE H, Urine Bilirubin NEGATIVE, Urine Urobilinogen 1.0, Ur Leukocyte Esterase TRACE H, Urine RBC OCC, Urine WBC OCC, Ur Squamous Epith Cells 3-5, Urine Bacteria 4+, Urine Glucose NEGATIVE 07/24/16 1000: Sodium 141, Potassium 3.5, Chloride 108 H, Carbon Dioxide 26, BUN 16, Creatinine 1.0, Estimated Creat Clear 34 L, Estimated GFR (MDRD) 52 L, Glucose 111 H, Calcium 8.5, Total Bilirubin 0.4, AST 15, ALT 20, Alkaline Phosphatase 76, Total Protein 7.0, Albumin 3.2 L, Globulin 3.8 H, Albumin/Globulin Ratio 0.8 L, WBC 9.0, RBC 4.21, Hgb 12.5, Hct 38.4, MCV 91.2, RDW 14.6, Plt Count 313 , MPV 6.1 L, Gran % 43.2, Gran # 3.9, Lymphocytes % 46.7, Monocytes % 6.3, Eosinophils % 3.1, Basophils % 0.7, Lymphocytes # 4.2, Monocytes # 0.6, Eosinophils # 0.3, Basophils # 0.1, PUBS MCHC 32.6, MCH 29.7 Microbiology 07/24 1250 BLOOD: Anaerobic Blood Culture - RECD 07/24 1250 BLOOD: Aerobic Blood Culture - RECD 07/24 1250 BLOOD: Anaerobic Blood Culture - RECD 07/24 1250 BLOOD: Aerobic Blood Culture - RECD 07/24 1115 URINE CC: Urine Culture - RES Last VS-Temp:99.4 B/P:123/53 Pulse:81 Resp:20 SaO2:92 ROOM AIR Last weight lbs:144 oz:0 K.318 Method:Bed Scales Exam General appearance: awake, no acute distress Eyes: anicteric, conjunctiva clear, hematoma of the RIGHT forehead and surrounding ecchymoses. Extraocular muscles seem intact. ENT: mucous membranes moist Cardiovascular: regular rate & rhythm Respiratory: clear to auscultation ABD: soft, no tenderness Genitourinary: normal voiding & quantity Extremities: no peripheral edema Musculoskeletal: she is wearing the sling for her arm but it doesn't seem to be doing much. Skin: dry, intact Neuro: speech clear, rather flat affect. She is not oriented. Reviewed: medications, vital signs, lab results, radiology report Assessment/Plan Problem List 1. Closed head injury 2. Cystitis without hematuria 3. Closed anterior dislocation of right shoulder 4. Alzheimer's dementia Status: Chronic 5. Fall 6. History of ASCVD (arteriosclerotic cardiovascular disease) 7. GERD (gastroesophageal reflux disease) 8. Alzheimer's dementia with behavioral disturbance Patient condition Stable Plan: we will keep her under observation today. She deserves further IV antibiotic therapy. Her level of care will likely be more complicated When she returns to the half-way. This inpt stay is expected to cross 2 MNs from start of care Yes at 0925
[2016-07-26 05:03] VITALS: BP 128/68
[2016-07-26 08:00] VITALS: BP 134/63
--- NOTE | 2016-07-26 08:25 | ACUTE CARE PROGRESS NOTE (QUA) ---
See Addendum Progress Notes Subjective Date 07/26/16 Time 0730 Note States she is not doing well; hurts all over although denies CP and SOB; some left shoulder discomfort and has head pain; Has been out of bed and sat in the chair and uses the BSC; eatin without problems Objective Findings Vital Signs Date Time Temp Pulse Resp B/P Pulse O2 O2 Flow FiO2 Ox Delivery Rate 07/26 0800 98.9 89 18 134/63 93 ROOM AIR 07/26 0503 98.9 78 18 128/68 98 ROOM AIR 07/26 0130 18 07/25 2348 98.9 91 18 126/64 99 ROOM AIR 07/25 2144 99.2 85 18 134/72 97 07/25 1943 99.2 85 18 134/72 97 ROOM AIR 07/25 1939 2 07/25 1856 2 07/25 1807 2 07/25 1700 2 07/25 1602 97.8 85 20 110/48 93 07/25 1601 2 07/25 1459 2 07/25 1344 2 07/25 1300 2 07/25 1144 2 07/25 1142 99.0 85 20 136/61 93 ROOM AIR 07/25 1100 2 07/25 1008 2 07/25 0926 99.4 81 20 123/53 92 07/25 0900 2 07/25 0817 99.4 81 20 123/53 92 ROOM AIR 07/25 0814 2 Current Medications Morphine Sulfate 0 .STK-MED ONE .ROUTE (DC) Ceftriaxone Sodium 1 GM DAILY IV Sodium Chloride 50 ML Duloxetine HCl 30 MG DAILY PO Donepezil HCl 10 MG QHS PO Memantine 10 MG BID PO Olanzapine 5 MG QHS PO Acetaminophen 650 MG Q4HP PRN PO Hydroxyzine Pamoate 50 MG QHSP PRN PO Potassium Chloride 20 MEQ Q48H PO Sodium Chloride 25 ML PRN PRN IV Aspirin 325 MG DAILY PO Hydrocodone Bitart/Acetaminophen 1 TAB Q6HP PRN PO Morphine Sulfate 2 MG Q2HP PRN IV Promethazine HCl 25 MG Q4HP PRN IV Sodium Chloride 1,000 ML .[id number] IV Sodium Chloride 10 ML PRN PRN IV (DC) 07/25 1500 07/25 2300 07/26 0700 Intake Total 420 898 757 Output Total Balance 420 898 757 Intake, IV 658 757 Intake, Oral 420 240 Last VS-Temp:98.9 B/P:134/63 Pulse:89 Resp:18 SaO2:93 ROOM AIR Last weight lbs:144 oz:0 K.318 Method:Bed Scales > URINE CULTURE Final 07/25/16-174 COLONY COUNT >100,000 CFU/ml Organism 1 ESCHERICHIA COLI 1. ESCHERICHIA COLI RX AB M.I.C ROUTE COST I ------ -- --------- ----- ------ TRIMETH/SULFAMETH (BACTRIM) S <=20 AMPICILLIN S 4 AMOXOC/CLAV ACID (AUGMENTIN) S <=2 AMPICILLIN/SULBACTAM S <=2 CEFAZOLIN S <=4 CEFTAZIDIME (FORTAZ) S <=1 CEFEPIME S <=1 ERTAPENEM S <=0.5 GENTAMICIN S <=1 IMIPENEM S <=0.25 CEFTRIAXONE S <=1 LEVOFLOXACIN S <=0.12 NITROFURANTOIN (MACRODANTIN) S <=16 PIPERACILLIN/TAZOBACTAM S <=4 TOBRAMYCIN S <=1 ESBL NEG Exam General appearance: alert, no acute distress, hematoma in right forehead Eyes: pupils reactive to light, edema and ecchymosis around the right eye Cardiovascular: regular rate & rhythm Respiratory: bilateral crackles to mid lungs ABD: non-distended, soft, no tenderness Extremities: no peripheral edema, no calf tenderness Neuro: alert, speech clear, disoriented Assessment/Plan Problem List 1. Closed head injury 2. Cystitis without hematuria 3. Closed anterior dislocation of right shoulder 4. Alzheimer's dementia Status: Chronic 5. Fall 6. History of ASCVD (arteriosclerotic cardiovascular disease) 7. GERD (gastroesophageal reflux disease) 8. Alzheimer's dementia with behavioral disturbance Patient condition Stable Plan: continue current care, saline lock; repeat CXR due to new crackles, urine culture + E coli This inpt stay is expected to cross 2 MNs from start of care Yes at 0825 at 0977
[2016-07-26 09:15] VITALS: BP 134/63
[2016-07-26 11:42] VITALS: BP 131/64
--- NOTE | 2016-07-26 11:55 | RADIOLOGY REPORT PS360 ---
CHEST(2 VIEWS-NOT PORTABLE) Ordering Physician: Addy Marie MD Patient Age: 86 years: Female HISTORY: bilateral cracklesrecent fall with bilateral crackles in chest pain. TECHNIQUE: FINDINGS No pneumothorax. No obvious rib fractures. T-spine appears stable with no compression fractures degenerative disc changes upper lumbar spine noted along with dextroscoliosis upper lumbar spine. When compared to the recent chest film 07/24/2016 the lungs appear to be better expanded and clear with less vascular prominence.. Heart is normal in size. Calcified aortic knob. Blunting right CP angle as well as the right cardiophrenic angle. Also blunting posterior sulcus lateral view. This is more evident than on June [address] Could reflect scant pleural fluid along with some additional atelectasis here \The recent 06-18 CTA chest showed scarring at the medial right base which extends posteriorly & likely accounts for the appearance posteriorly the lateral view. Slight blunting right CP angle today may reflect small fluid at although cannot exclude some atelectasis and scarring. Coarsening markings bilaterally is slight mosaic appearance noted on recent CT, reflect underlying chronic lung changes/underlying COPD.. Towards left apex is a calcified granuloma. left upper lung is most likely granuloma IMPRESSION: No focal pneumonia. Underlying chronic lung changes COPD. Subtle blunting towards right CP & posterior sulcus noted today & more evident than on June 2016 chest film & CT. Could reflect a scant pleural effusion vs atelectasis with minimal pleural scarring accentuated on today's study.. Unimpressive Small hiatal hernia.
[2016-07-26] MEDS ORDERED: CEFUROXIME AXE500 MG PO (12:28)
--- NOTE | 2016-07-26 13:01 | DISCHARGE SUMMARY STANDARD ---
Discharge Summary ([facility]) Date of admission: 07/24/16 Date of discharge: 07/26/16 Problem List: 1. Closed head injury 2. Cystitis without hematuria 3. Closed anterior dislocation of right shoulder 4. Alzheimer's dementia 5. Fall 6. History of ASCVD (arteriosclerotic cardiovascular disease) 7. GERD (gastroesophageal reflux disease) 8. Alzheimer's dementia with behavioral disturbance History of present illness: History of Present Illness: Ms. Byrd is an 86-year-old white female with Alzheimer's dementia and coronary artery disease who is a resident of [facility] [place]. She suffered a fall at the long term AM of admission. It was not clear if she had a syncopal episode or simply fell although she told the ER physician she did not pass out. On evaluation in the emergency room, she was noted to have a large contusion of the right forehead and eye as well as an anterior dislocation of the left shoulder. CT scan of the head showed no intracranial bleed. X-rays of the C-spine and shoulder showed no fracture. Laboratory data was satisfactory except for an abnormal urinalysis. Under sedation, the ER physician was able to reduce left shoulder dislocation. Because of her closed head trauma and urinary tract infection, it was felt prudent to admit her for observation. On initial exam she was awake and appeared fairly comfortable. She answered questions appropriately. Exam on admission: Vital signs: 1ST Vital Signs Result Date Time Pulse Ox 92 07/24 0946 B/P 183/84 07/24 0846 Temp 97.6 07/24 0946 Pulse 76 07/24 0946 Resp 16 07/24 0946 O2 Flow Rate 2 07/24 1037 O2 Delivery OXYGEN 07/24 1253 Exam: General appearance: awake, no acute distress, calm demeanor Eyes: large hematoma of right forehead and around. She is able to partially open right. Globe appears intact ENT: mucous membranes moist, nose normal, pharynx normal Neck: supple, slight tenderness of right posterior neck Cardiovascular: regular rate & rhythm, no murmur Respiratory: clear to auscultation, chest non-tender, good air movement ABD: non-distended, soft, no tenderness Extremities: no peripheral edema, warm Musculoskeletal: left arm in sling Skin: dry, normal color, warm, several small abrsions on right forehead Neuro: alert, speech clear, oriented to name only Hospital Course: Patient was started on IV Rocephin for her UTI. Culture did reveal E coli sensitive to all antibiotics. CT of the head showed her forehead hematoma. Neck, right knee, left ankle x-rays were negative for fractures. She ambulated with assistance to the [facility] and did sit up in the bedside chair without problems. She wore the right arm sling. Patient did not eat well. She remained confused throughout the stay. She was sometimes incontinent of urine. She did complain of a headache. She denied CP and SOB. She developed crackles in bilateral lung nicole. Repeat CXR showed a little effusion in the right lung. On 07/26/16 she was stable to be discharged back to [facility] and will be continued with PO ABX. She will need to continue with the right arm sling for 4 weeks. Laboratory data this visit: 07/24/16 1250: Lactic Acid 1.8 07/24/16 1115: Urine Color YELLOW, Urine Appearance CLOUDY, Urine pH 7.0, Ur Specific Hunter 1.015, Urine Protein NEGATIVE, Urine Ketones NEGATIVE, Urine Blood TRACE-INTACT, Urine Nitrate POSITIVE H, Urine Bilirubin NEGATIVE, Urine Urobilinogen 1.0, Ur Leukocyte Esterase TRACE H, Urine RBC OCC, Urine WBC OCC, Ur Squamous Epith Cells 3-5, Urine Bacteria 4+, Urine Glucose NEGATIVE 07/24/16 1000: Sodium 141, Potassium 3.5, Chloride 108 H, Carbon Dioxide 26, BUN 16, Creatinine 1.0, Estimated Creat Clear 34 L, Estimated GFR (MDRD) 52 L, Glucose 111 H, Calcium 8.5, Total Bilirubin 0.4, AST 15, ALT 20, Alkaline Phosphatase 76, Total Protein 7.0, Albumin 3.2 L, Globulin 3.8 H, Albumin/Globulin Ratio 0.8 L, WBC 9.0, RBC 4.21, Hgb 12.5, Hct 38.4, MCV 91.2, RDW 14.6, Plt Count 313 , MPV 6.1 L, Gran % 43.2, Gran # 3.9, Lymphocytes % 46.7, Monocytes % 6.3, Eosinophils % 3.1, Basophils % 0.7, Lymphocytes # 4.2, Monocytes # 0.6, Eosinophils # 0.3, Basophils # 0.1, PUBS MCHC 32.6, MCH 29.7 04/23/17 0620: Sodium 140, Potassium 3.6, Chloride 108 H, Carbon Dioxide 25, BUN 14, Creatinine 0.9, Estimated Creat Clear 45 L, Estimated GFR (MDRD) 59, Glucose 104, Calcium 8.3 L, WBC 6.8, RBC 4.01 L, Hgb 12.2, Hct 36.4 L, MCV 90.7, RDW 14.7, Plt Count 246, MPV 5.9 L, Gran % 66.4, Gran # 4.5, Lymphocytes % 23.8, Monocytes % 8.7, Eosinophils % 0.4, Basophils % 0.6, Lymphocytes # 1.6, Monocytes # 0.6, Eosinophils # 0.0, Basophils # 0.0, PUBS MCHC 33.4, MCH 30.3 > URINE CULTURE Final 07/25/16-1742 COLONY COUNT >100,000 CFU/ml Organism 1 ESCHERICHIA COLI 1. ESCHERICHIA COLI RX AB M.I.C ROUTE COST I ------ -- --------- ----- ------ TRIMETH/SULFAMETH (BACTRIM) S <=20 AMPICILLIN S 4 AMOXOC/CLAV ACID (AUGMENTIN) S <=2 AMPICILLIN/SULBACTAM S <=2 CEFAZOLIN S <=4 CEFTAZIDIME (FORTAZ) S <=1 CEFEPIME S <=1 ERTAPENEM S <=0.5 GENTAMICIN S <=1 IMIPENEM S <=0.25 CEFTRIAXONE S <=1 LEVOFLOXACIN S <=0.12 NITROFURANTOIN (MACRODANTIN) S <=16 PIPERACILLIN/TAZOBACTAM S <=4 TOBRAMYCIN S <=1 ESBL NEG Imaging: X ray Right shoulder 07/24/16 IMPRESSION: Right anterior shoulder dislocation Post reduction X ray right shoulder 07/24/16 IMPRESSION: Relocation of the humeral head CT of head 07/24/16 IMPRESSION: 1. No acute intracranial pathology. 2. Large right supraorbital hematoma. CXR 07/24/16 FINDINGS: Normal heart size. No lobar consolidation or collapse. No acute bony anomalies IMPRESSION: No change with no acute finding CT of cervical spine 07/24/16 IMPRESSION: 1. No acute fracture. 2. Mild degenerative change. 3. 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 Left Knee 07/24/16 IMPRESSION: Soft tissue laceration at the patellar region, no acute bony anomalies IMPRESSION: No acute finding X-ray Right ankle 07/24/16 IMPRESSION: No acute finding Repeat CXR 07/26/16 IMPRESSION: No focal pneumonia. Underlying chronic lung changes COPD. Subtle blunting towards right CP & posterior sulcus noted today & more evident than on June 2016 chest film & CT. Could reflect a scant pleural effusion vs atelectasis with minimal pleural scarring accentuated on today's study.. Unimpressive Small hiatal hernia. Discharge medications: Continue taking these medications: ASPIRIN (Aspirin EC) 325 MG TABLET. 325 MILLIGRAM ORAL DAILY CYANOCOBALAMIN (VITAMIN B-12) (Vitamin B-12) 1,000 MCG TABLET 1,000 MICROGRAM ORAL DAILY DULOXETINE HCL (Cymbalta 30MG) 30 MG CAPSULE. 30 MILLIGRAM ORAL DAILY DONEPEZIL HCL (Donepezil 10MG Tablet) 10 MG TABLET 10 MILLIGRAM ORAL AT BEDTIME NIGHTLY Hydroxyzine Hcl (Hydroxyzine) 50 MG TABLET 50 MILLIGRAM ORAL AT BEDTIME NIGHTLY Potassium Chloride (Klor-Con M20) 20 MEQ TAB.ER.PRT 20 Milliequivalent ORAL EVERY 48 HOURS MEMANTINE HCL (Namenda 10MG) 10 MG TABLET 10 MILLIGRAM ORAL TWICE A DAY Olanzapine (Olanzapine) 5 MG TABLET 5 MILLIGRAM ORAL AT BEDTIME NIGHTLY Acetaminophen (Tylenol) 325 MG TABLET 650 MILLIGRAM ORAL EVERY 4 HOURS NEEDED as needed for PAIN/FEVER Start taking the following new medications: Cefuroxime Axetil (Cefuroxime) 500 MG TABLET 500 MILLIGRAM ORAL TWICE A DAY Qty = 14 No Refills Disposition: Discharged to [facility] in stable and satisfactory condition. Meds to be continued as per reconciliation sheet and to include Ceftin for 7 days for Ecoli UTI. To continue with same activity and diet; Fall prevention. FU in 1 week at [facility] by [facility] provider. To continue with the right arm sling for 4 weeks. at 1300
[2016-07-26 15:47] VITALS: BP 131/64
== END 2016-07-26 15:40 ==
LOC: ER 09:43 → 2ND 12:50
PROVIDERS: General Practice
PROC: 0RSJXZZ Reposition Right Shoulder Joint, External Approach (ICD-10-PCS; principal; 2016-07-24)
DX: S43.014A Anterior dislocation of right humerus, initial encounter (principal); S09.90XA Unspecified injury of head, initial encounter; N39.0 Urinary tract infection, site not specified; G30.9 Alzheimer's disease, unspecified; F02.81 Dementia in other diseases classified elsewhere, unspecified severity, with behavioral disturbance; W18.30XA Fall on same level, unspecified, initial encounter; Y92.129 Unspecified place in nursing home as the place of occurrence of the external cause
CPT/HCPCS: G0378; J2405